=== PATIENT | male | born 1945 | race Caucasian/White ===

== ENCOUNTER 2017-09-03 00:41 | Emergency (ER) | payer OTHER, BC ==
[2017-09-03 00:50] VITALS: TEMP 98.2; O2SAT 93
[2017-09-03] MEDS ORDERED: PHENAZOPYRIDINE HCL 200 MG TAB PO ONE (01:41)
--- NOTE | 2017-09-03 01:49 | EDPHY ---
H & P Stated Complaint: FREQUENT, PAINFUL URINATION Time Seen by Provider: 09/03/17 00:55 HPI/ROS: HPI The patient presents with dysuria, urgency and frequency which has been present for the last 1 day. Symptoms started slowly and has gotten progressively worse. He has associated suprapubic pressure, though not pain. He does not have any fevers or chills, nausea or vomiting. He does not have any back pain. He says he has no underlying prostate problems, however has nocturia x3 for the last several months. He has no prior history of urinary tract infection. REVIEW OF SYSTEMS Constitutional: No fever, no chills. Eyes: No discharge. ENT: No sore throat. Cardiovascular: No chest pain, no palpitations. Respiratory: No cough, no shortness of breath. Gastrointestinal: No abdominal pain, no vomiting. Genitourinary: No hematuria. Musculoskeletal: No back pain. Skin: No rashes. Neurological: No headache. PMHx: Type 2 diabetes Soc Hx: Lives at home with PHYSICAL General Appearance: Alert, no distress Eyes: Pupils equal and round no pallor or injection ENT, Mouth: Mucous membranes moist Respiratory: There are no retractions, lungs are clear to auscultation Cardiovascular: Regular rate and rhythm Gastrointestinal: Abdomen is soft and with mild suprapubic tenderness, no masses, bowel sounds normal Neurological: A&O, moves all extremities Skin: Warm and dry, no rashes Musculoskeletal: Neck is supple non tender Extremities: symmetrical, full range of motion Psychiatric: Patient is oriented X 3, there is no agitation Source: Patient Exam Limitations: No limitations - Personal History Current Tetanus Diphtheria and Acellular Pertussis (TDAP): Unsure - Medical/Surgical History Hx Asthma: No Hx Chronic Respiratory Disease: No Hx Diabetes: Yes Hx Cardiac Disease: No Hx Renal Disease: No Hx Cirrhosis: No Hx Alcoholism: No Hx HIV/AIDS: No Hx Splenectomy or Spleen Trauma: No Other PMH: DMII, tonsillectomy, shingles - Social History Smoking Status: Never smoked Constitutional: Initial Vital Signs Temperature (C) 36.8 C 09/03/17 00:47 Heart Rate 105 H 09/03/17 00:47 Respiratory Rate 20 09/03/17 00:47 Blood Pressure 124/69 H 09/03/17 00:47 O2 Sat (%) 93 09/03/17 00:47 O2 Delivery Mode Room Air Allergies/Adverse Reactions: No Known Allergies Allergy (Unverified 09/03/17 00:45) Home Medications: Medication Instructions Recorded Metformin HCl 03/08/16 Hydroxyzine HCl 09/03/17 Phenazopyridine HCl [Pyridium] 200 mg PO TID #20 tab 09/03/17 SIMVASTATIN 09/03/17 levOFLOXACIN [Levofloxacin] 750 mg PO DAILY #10 tablet 09/03/17 Medical Decision Making Differential Diagnosis: 72-year-old male with diabetes presents with 1 day of irritative voiding symptoms. He does not have any rectal pain, back pain, nausea or vomiting, fevers or chills. Differential diagnosis includes cystitis, pyelonephritis, prostatitis. In the emergency department, urinalysis was checked and is consistent with urinary tract infection. Given that he does have suprapubic discomfort on exam , I feel cystitis is likely diagnosis. Because he is male, I will treat with 10 days of Levaquin. I have referred him to Urology if he has any ongoing symptoms. We discussed return precautions. - Data Points Laboratory Results: 09/03/17 01:23 Urine Color LEATHA Urine Appearance TURBID Urine pH 6.0 (5.0-7.5) Ur Specific Zahl 1.011 (1.002-1.030) Urine Protein 2+ H (NEGATIVE) Urine Ketones NEGATIVE (NEGATIVE) Urine Blood 2+ H (NEGATIVE) Urine Nitrate NEGATIVE (NEGATIVE) Urine Bilirubin NEGATIVE (NEGATIVE) Urine Urobilinogen NEGATIVE EU EU (0.2-1.0) Ur Leukocyte Esterase 3+ H (NEGATIVE) Urine RBC 25-50 /hpf H /hpf (0-3) Urine WBC 50-182 /hpf H /hpf (0-3) Ur Epithelial Cells NONE SEEN /lpf /lpf (NONE-1+) Urine Bacteria 3+ /hpf H /hpf (NONE SEEN) Urine Mucus 3+ /lpf H /lpf (NONE-1+) Urine Glucose NEGATIVE (NEGATIVE) Medications Given: Discontinued Medications Levofloxacin (Levaquin) 750 mg PO EDNOW ONE PRN Reason: Protocol Stop: 09/03/17 01:42 Last Admin: 09/03/17 01:45 Dose: 750 mg Phenazopyridine HCl (Pyridium) 200 mg PO EDNOW ONE Stop: 09/03/17 01:42 Last Admin: 09/03/17 01:45 Dose: 200 mg Departure - Departure Disposition: Home, Routine, Self-Care Clinical Impression: Urinary tract infection Qualifiers: Urinary tract infection type: acute cystitis Hematuria presence: without hematuria Qualified Code(s): N30.00 - Acute cystitis without hematuria Condition: Good Instructions: Urinary Tract Infection in Men (ED) Additional Instructions: Please make sure to drink plenty of fluids. You can take antibiotic as prescribed. I have given you follow-up information for the urologist, whom you should see if you continue to have any symptoms in the next few days. Referrals: Rj Steen MD [Primary Care Provider] - As per Instructions Rajeev Chaney MD [Medical Doctor] - As per Instructions Prescriptions: levOFLOXACIN [Levofloxacin] 750 mg PO DAILY #10 tablet Phenazopyridine HCl [Pyridium] 200 mg PO TID #20 tab
[2017-09-03 01:56] VITALS: BP 127/82; PULSE 91; RESP 18
== END 2017-09-03 01:55 | disposition home or self-care (01) ==
DX: N30.00 Acute cystitis without hematuria (principal); B95.2 Enterococcus as the cause of diseases classified elsewhere; E11.9 Type 2 diabetes mellitus without complications; Z79.84 Long term (current) use of oral hypoglycemic drugs

== ENCOUNTER → 2018-09-30 | Outpatient (CLI) | payer OTHER, BC | LOC: FIMAGING 14:41 | PROVIDERS: ATTEND Family Medicine | DX: M54.5 Low back pain (principal); Z91.81 History of falling; M43.06 Spondylolysis, lumbar region ==

== ENCOUNTER → 2018-10-04 | Outpatient (CLI) | payer OTHER, BC ==
[~2018-10-04] MED LIST: GADOBUTROL 10 ML VIAL IVP ONE
== END ==
LOC: FIMAGING 07:30
PROVIDERS: ATTEND Physician Assistant Medical
DX: G31.9 Degenerative disease of nervous system, unspecified (principal); R90.82 White matter disease, unspecified; E11.40 Type 2 diabetes mellitus with diabetic neuropathy, unspecified; Z79.4 Long term (current) use of insulin
CPT/HCPCS: 70551; A9585; 82565-PO